=== PATIENT | female | born 1975 | race Caucasian/White ===

== ENCOUNTER 2024-04-17 06:27 | Day surgery (SDC) | payer MEDICAID ==
[~2024-04-17] VITALS: Ht 157.5 cm; Wt 93.0 kg
[~2024-04-17 06:27] MED LIST: FLUT9.9S16 BOTHNSTRLS; MAGN400C PO; OMEP20TA23 PO
[2024-04-17 07:05] LABS: UCG SCREEN NEGATIVE
[2024-04-17] MEDS ORDERED: BUPIVACAINE HCL/PF 0.5% (5MG/ML) 10ML ONE (08:15)
[2024-04-17] MEDS: LACTATED RINGERS 1,000 ML IV SCH (08:29)
[2024-04-17] MEDS ORDERED: SKIN ADHESIVE 0.7 GM EA TOP ONE (09:26)
[2024-04-17] MEDS ORDERED: PROPOFOL 200MG/20ML VIAL IV ONE (10:51)
[2024-04-17] MEDS ORDERED: ROCURONIUM BROMIDE 10MG/ML VIAL 5ML IV ONE (10:51)
[2024-04-17] MEDS ORDERED: FENTANYL CITRATE/PF 50MCG/ML 2ML VIAL ONE (10:52)
[2024-04-17] MEDS ORDERED: MIDAZOLAM HCL 2 MG/2 ML VIAL ONE (10:52)
[2024-04-17] MEDS ORDERED: HYDROMORPHONE HCL/PF 2MG/ML CPJ IV PRN (11:15)
[2024-04-17] MEDS ORDERED: MEPERIDINE HCL/PF 25MG/ML CPJ IV PRN ×2 (11:15)
[2024-04-17] MEDS ORDERED: ONDANSETRON HCL 4MG/2ML INJ IV PRN (11:15)
[2024-04-17] MEDS ORDERED: LABETALOL 5MG/ML 4ML INJ IV PRN ×2 (11:15)
[2024-04-17] MEDS: ONDANSETRON HCL 4MG/2ML INJ IV PRN (12:43)
[2024-04-17 12:52] VITALS: BP 132/79; PULSE 59; RESP 32
[2024-04-17] MEDS: HYDROMORPHONE HCL/PF 2MG/ML CPJ IV PRN (12:52)
== END 2024-04-17 14:55 | disposition home or self-care (01) ==
LOC: OR 06:27
PROVIDERS: ATTEND Surgery
DX: K80.10 Calculus of gallbladder with chronic cholecystitis without obstruction (principal); M19.90 Unspecified osteoarthritis, unspecified site; K21.9 Gastro-esophageal reflux disease without esophagitis; Z79.899 Other long term (current) drug therapy; Z98.890 Other specified postprocedural states
CPT/HCPCS: 47562; 81025; 88304; J3010; J3490 ×2; J2250; J2405; J2704; J1170; J7030